=== PATIENT | male | born 1980 | race American Indian/Alaskan Native ===

== ENCOUNTER 2017-12-10 11:38 | Outpatient (CLI) | payer OTHER ==
--- NOTE | 2017-12-11 08:13 | XRay Report ---
XRAY RIGHT KNEE 3 THREE VIEWS: 12/10/17 11:38:00 CLINICAL: Right knee pain. FINDINGS: Moderate diffuse osteopenia. Status post screw fixation of a medial tibial plateau fracture with a single screw in place. No fracture lines. Lateral subluxation of the tibia relative to the femur and a valgus deformity with complete loss of the medial joint space and widening of the lateral joint space. Medial osteophytes. Heterotopic bone formation at the joint capsule. No fracture or dislocation. Small patellofemoral joint osteophytes. No joint effusion.Normal soft tissues. IMPRESSION: Status post ORIF of a remote medial tibial plateau fracture.Valgus deformity and lateral subluxation of the tibia. 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
== END 2017-12-10 11:39 | disposition home or self-care (01) ==
LOC: SPVIMAG 11:38
PROVIDERS: ATTEND Orthopaedic Surgery
DX: M17.11 Unilateral primary osteoarthritis, right knee (principal); M21.061 Valgus deformity, not elsewhere classified, right knee; M85.861 Other specified disorders of bone density and structure, right lower leg; S82.141D Displaced bicondylar fracture of right tibia, subsequent encounter for closed fracture with routine healing; X58.XXXD Exposure to other specified factors, subsequent encounter